=== PATIENT | female | born 1965 | race Caucasian/White ===

== ENCOUNTER 2017-07-08 09:58 | Day surgery (SDC) | payer OTHER ==
[2017-06-30 12:05] VITALS: BMI 25.0
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
[2017-07-08] MEDS ORDERED: ROPIVACAINE HCL 0.5% 30ML VIAL ONE (14:13)
[2017-07-08] MEDS ORDERED: DEXAMETHASONE SOD PHOSPHATE/PF 10 MG/ML SDV ONE (14:13)
[2017-07-08] MEDS ORDERED: MIDAZOLAM HCL 2 MG/2 ML SINGLE DOSE VIAL ONE (14:13)
[2017-07-08] MEDS ORDERED: ONDANSETRON 4 MG/2 ML VIAL ONE (15:54)
[2017-07-08] MEDS ORDERED: DEXAMETHASONE SOD PHOSPHATE 4 MG/1 ML VIAL ONE (15:54)
[2017-07-08] MEDS ORDERED: ceFAZolin SODIUM 1 GM VIAL ONE (15:54)
[2017-07-08] MEDS ORDERED: BUPIVACAINE 0.25% /EPI 1:200,000 10 ML VIAL INF ONE ×2 (16:05)
[2017-07-08] MEDS ORDERED: PROPOFOL 20 ML ONE (16:20)
[2017-07-08] MEDS ORDERED: oxyCODONE HCL 5 MG TABLET PO PRN ×3 (16:31→16:49)
[2017-07-08] MEDS ORDERED: oxyCODONE HCL 10 MG SUSTAINED ACTING TABLET PO ONE (16:31)
--- NOTE | 2017-07-08 16:36 | DS ---
Physical Examination Vital Signs: Vital Signs Temperature 97.9 F 07/08/17 10:59 Pulse Rate 55 L 07/08/17 10:59 Respiratory Rate 18 07/08/17 10:59 Blood Pressure 119/77 07/08/17 10:59 O2 Sat by Pulse Oximetry (%) 99 07/08/17 10:59 Discharge Summary Reason For Visit: LEFT SHOULDER AC JOINT ARTHROSIS Condition: Good - Instructions Diet, Activity, Other Instructions: Post Operative Instructions: Shoulder Arthroscopy Dr Usman Smith 1. Pain following a Shoulder Arthroscopy is variable and can be significant. Some patients will have more pain than others. You have been provided with a prescription for medication that contains a narcotic. Feel free to take medications such as Ibuprofen or Naprosyn in addition to the pain medicine if you do not have any problems with the NSAID class of medications. 2. Apply ice to the shoulder for 15 minutes every hour. You may continue this for as many days as necessary. 3. You may find sleeping on an incline (reclining chair) to be more comfortable for the first few days. 4. You may remove your sling when the arm is comfortable. 5. You may use the arm as tolerated. 6. You may remove the bandages in 24 hours. You may shower at that point. 7. Place band-aids on the sutures after your shower.Do not put any creams or lotions on the incision until after the sutures are removed. 8. Please call the office to schedule a visit to have your sutures removed. 9. If for any reason you believe you may have an infection or are concerned, please feel free to call me. I can be reached through our office number 24 hours a day. 10. Please call our office with any questions; we will review the surgical findings during your post-operative visit. Disposition: HOME - Home Medications Comprehensive Discharge Medication List: Ambulatory Orders Escitalopram Oxalate [Lexapro -] 20 mg PO DAILY 06/30/17
--- NOTE | 2017-07-08 16:36 | OP ---
Operative Note - Note: Operative Date: 07/08/17 Pre-Operative Diagnosis: Left shoulder AC Joint arthrosis Operation: Left shoulder arthroscopy and distal clavicle resection Post-Operative Diagnosis: Same as Pre-op Surgeon: Usman Smith Anesthesia: General Operative Report Dictated: Yes
[2017-07-08] MEDS ORDERED: ONDANSETRON 4 MG/2 ML VIAL IVPUSH PRN (16:49)
[2017-07-08] MEDS ORDERED: PROMETHAZINE HCL 25 MG/1 ML VIAL IVPUSH PRN (16:49)
[2017-07-08] MEDS ORDERED: LACTATED RINGERS SOLUTION 1,000 ML IV SCH (17:00)
[2017-07-08] MEDS ORDERED: oxyCODONE HCL 10 MG SUSTAINED ACTING TABLET ONE (17:46)
[2017-07-08 18:18] VITALS: PULSE 65
[2017-07-08 18:24] VITALS: BP 121/68; TEMP 98
--- NOTE | 2017-07-12 16:18 | SURG ---
Surgery [facility] Note [facility] Setter: Linda Mahan PA-C Date of Service: 07/08/17 Diagnosis: Left shoulder AC Joint arthrosis Procedure: Left shoulder arthroscopy and distal clavicle resection I was present for the entirety of the operative procedure. For further detail, please refer to operative report. Visit type - Case Type Case Type: Scheduled Admission - Emergency Emergency Visit: No - New patient This patient is new to me today: Yes Date on this admission: 07/08/17 - Critical Care Critical Care patient: No
--- NOTE | 2017-07-13 14:11 | PATH ---
Surgical Pathology Report Patient Name: BLAS WELLS [facility]. Rec. #: [id number] /Age/Gender: 1965 (Age: 52) / F Account: [id number] [facility] Taken: 07/08/2017 Received: 07/08/2017 Reported: 07/13/2017 Physicians: Usman Smith M.D. Specimen(s) Received SHAVINGS LEFT SHOULDER Clinical History AC joint arthrosis left shoulder Final Diagnosis SHOULDER, LEFT, ARTHROSCOPIC SHAVINGS: CARTILAGE, BONE AND FIBROCOLLAGENOUS TISSUE. Electronically Signed Colleen Curtis M.D. Gross Description Received in formalin, labeled "shavings left shoulder," is a 3.4 x 2.5 x 0.3 cm. aggregate of velez-yellow soft tissue fragments. A claims representative portion is submitted in one cassette. /07/12/201707/12/2017
== END 2017-07-08 18:15 | disposition home or self-care (01) ==
LOC: FASU 09:58
PROVIDERS: ATTEND Orthopaedic Surgery
PROC: 0PBB4ZZ Excision of Left Clavicle, Percutaneous Endoscopic Approach (ICD-10-PCS; principal; 2017-07-08 15:43)
DX: M19.012 Primary osteoarthritis, left shoulder (principal)
CPT/HCPCS: 88304-TC